=== PATIENT | male | born 1945 | race Caucasian/White ===

== ENCOUNTER 2019-03-21 16:45 | Emergency (ER) | payer MEDICARE ==
[2019-03-21] MEDS ORDERED: Albuterol/Ipratropium 3.0-0.5 MG/3 ML Neb Soln NEB ONE (16:53)
[2019-03-21] MEDS ORDERED: Albuterol/Ipratropium 3.0-0.5 MG/3 ML Neb Soln ONE (16:53)
[2019-03-21] MEDS ORDERED: methylPREDNISolone Sodium Succinate 125 MG/2 ML SDV IVPUSH ONE (16:54)
[2019-03-21] MEDS ORDERED: Sodium Chloride 0.9% 10 ML Syringe FLUSH PRN (16:54)
--- NOTE | 2019-03-21 16:58 | EDM.PDOC ---
ED HPI GENERAL MEDICAL PROBLEM - General Chief Complaint: Respiratory Problem Stated Complaint: SOB Time Seen by Provider: 03/21/19 16:52 Source of Information: Reports: Patient History Limitations: Reports: No Limitations - History of Present Illness INITIAL COMMENTS - FREE TEXT/NARRATIVE: Patient is an unfortunate 73-year-old male who is obese that presents emergency Department today with complaint of shortness of breath. Patient reports that symptoms started yesterday and progressively worsened today so he sought care in the emergency department. Patient reports that shortness of breath so severe that he was unable to smoke today shortness of breath positive cough which is nonproductive no chest pain no nausea no vomiting no fever no chills tells us that he drinks a half gallon of whiskey per day, and smokes a carton of cigarettes every 4 days - Related Data Allergies Allergy/AdvReac Type Severity Reaction Status Date / Time No Known Allergies Allergy Verified 03/21/19 16:49 Home Meds: Home Meds Aspirin [Ecotrin EC] 81 mg PO DAILY 03/21/19 [History] Lisinopril [Zestril] 20 mg PO DAILY 03/21/19 [History] Meloxicam 7.5 mg PO DAILY 03/21/19 [History] atorvaSTATin Calcium [Atorvastatin Calcium] 40 mg PO DAILY 03/21/19 [History] metFORMIN HCl [Metformin HCl] 1,000 mg PO DAILY 03/21/19 [History] ED ROS GENERAL - Review of Systems Review Of Systems: See Below Constitutional: Denies: Fever, Chills Respiratory: Reports: Shortness of Breath. Denies: Cough Cardiovascular: Denies: Chest Pain ED EXAM, GENERAL - Physical Exam Exam: See Below Exam Limited By: No Limitations General Appearance: Alert, WD/WN, Mild Distress, Obese Nose: Normal Inspection, Normal Mucosa, No Blood Throat/Mouth: Normal Inspection Head: Atraumatic, Normocephalic Respiratory/Chest: Respiratory Distress (Mild patient is hypoxic with an SPO2 of 85% on room air), Decreased Breath Sounds (Bibasilar), Wheezing (Moderate end expiratory upper lobes) Cardiovascular: Normal Peripheral Pulses, No Edema, No Gallop, No JVD, No Murmur , No Rub, Tachycardia, Irregularly Irregular GI/Abdominal: Normal Bowel Sounds, Soft, Non-Tender, No Organomegaly, No Distention, No Abnormal Bruit, No Mass Back Exam: Normal Inspection, Full Range of Motion, NT Extremities: Normal Range of Motion, Non-Tender, Normal Capillary Refill, Other (Pretibial edema 3+ bilaterally) Neurological: Alert, Other (hard of hearing) Skin Exam: Warm, Dry, No Rash EKG INTERPRETATION EKG Date: 03/21/19 Time: 17:34 Rhythm: A-Fib Rate (Beats/Min): 121 Mason: Normal QRS: Normal ST-T: Normal QT: Normal Course - Vital Signs Last Recorded V/S: Last Vital Signs Temp 99.6 F 03/21/19 16:54 Pulse 130 H 03/21/19 18:24 Resp 40 H 03/21/19 16:54 BP 144/77 H 03/21/19 18:24 Pulse Ox 95 03/21/19 17:57 - Orders/Labs/Meds Orders: Active Orders 24 hr Category Date Time Status EKG Documentation Completion [RC] ASDIRECTED Care 03/21/19 16:54 Active Oxygen Therapy [RC] ASDIRECTED Care 03/21/19 16:55 Active RT Aerosol Therapy [RC] ASDIRECTED Care 03/21/19 16:53 Active Chest 1V Frontal [CR] Stat Exams 03/21/19 16:54 Taken CULTURE BLOOD [BC] Stat Lab 03/21/19 18:25 Received CULTURE BLOOD [BC] Stat Lab 03/21/19 18:33 Received UA RFX ILDA AND CULT IF INDIC [URIN] Stat Lab 03/21/19 16:54 Ordered Sodium Chloride 0.9% [Saline Flush] Med 03/21/19 16:54 Active 10 ml FLUSH ASDIRECTED PRN Blood Culture x2 Reflex Set [OM.PC] Stat Oth 03/21/19 18:08 Ordered Saline Lock Insert [OM.PC] Stat Oth 03/21/19 16:54 Ordered EKG 12 Lead [EK] Stat Ther 03/21/19 16:54 Ordered Medication Orders Sodium Chloride (Saline Flush) 10 ml FLUSH ASDIRECTED PRN PRN Reason: Keep Vein Open Last Admin: 03/21/19 17:09 Dose: 10 ml Labs: Laboratory Tests 03/21/19 03/21/19 03/21/19 Range/Units 16:53 16:53 16:53 WBC 6.11 (4.23-9.07) K/mm3 RBC 4.88 (4.63-6.08) M/mm3 Hgb 16.4 (13.7-17.5) gm/dl Hct 47.5 (40.1-51.0) % MCV 97.3 H (79.0-92.2) fl MCH 33.6 H (25.7-32.2) pg MCHC 34.5 (32.2-35.5) g/dl RDW Std Deviation 50.3 H (35.1-43.9) fL Plt Count 157 L (163-337) K/mm3 MPV 11.0 (9.4-12.3) fl Neut % (Auto) 68.6 H (34.0-67.9) % Lymph % (Auto) 6.7 L (21.8-53.1) % [place] % (Auto) 24.2 H (5.3-12.2) % Eos % (Auto) 0 L (0.8-7.0) Baso % (Auto) 0.3 (0.1-1.2) % Neut # (Auto) 4.19 (1.78-5.38) K/mm3 Lymph # (Auto) 0.41 L (1.32-3.57) K/mm3 [place] # (Auto) 1.48 H (0.30-0.82) K/mm3 Eos # (Auto) 0.00 L (0.04-0.54) K/mm3 Baso # (Auto) 0.02 (0.01-0.08) K/mm3 Manual Slide Review Normal smear Puncture Site ABG pH (7.35-7.45) ABG pCO2 (35.0-45.0) mmHg ABG pO2 (80.0-100.0) mmHg ABG HCO3 (22.0-26.0) meq/L ABG O2 Saturation (96.0-97.0) % ABG Base Excess (-2-2.0) Ryan Test O2 Delivery Device Oxygen Flow Rate FiO2 (21.00-100.00) % Sodium 132 L (136-145) mEq/L Potassium 4.0 (3.5-5.1) mEq/L Chloride 95 L (98-107) mEq/L Carbon Dioxide 25 (21-32) mEq/L Anion Gap 16.0 H (5-15) BUN 9 (7-18) mg/dL Creatinine 1.0 (0.7-1.3) mg/dL Est Cr Clr Drug Dosing 68.94 mL/min Estimated GFR (MDRD) > 60 (>60) mL/min BUN/Creatinine Ratio 9.0 L (14-18) Glucose 173 H (83-115) mg/dL Lactic Acid (0.4-2.0) mmol/L Calcium 8.6 (8.5-10.1) mg/dL Total Bilirubin 0.4 (0.2-1.0) mg/dL AST 36 (15-37) U/L ALT 60 (16-63) U/L Alkaline Phosphatase 72 (46-116) U/L Troponin I 0.393 H* (0.00-0.056) ng/mL NT-Pro-B Natriuret Pep (0-125) pg/mL Total Protein 8.0 (6.4-8.2) g/dl Albumin 3.7 (3.4-5.0) g/dl Globulin 4.3 gm/dL Albumin/Globulin Ratio 0.9 L (1-2) Ethyl Alcohol 0.00 (0.00) gm% 03/21/19 03/21/19 03/21/19 Range/Units 16:53 16:55 18:33 WBC (4.23-9.07) K/mm3 RBC (4.63-6.08) M/mm3 Hgb (13.7-17.5) gm/dl Hct (40.1-51.0) % MCV (79.0-92.2) fl MCH (25.7-32.2) pg MCHC (32.2-35.5) g/dl RDW Std Deviation (35.1-43.9) fL Plt Count (163-337) K/mm3 MPV (9.4-12.3) fl Neut % (Auto) (34.0-67.9) % Lymph % (Auto) (21.8-53.1) % [place] % (Auto) (5.3-12.2) % Eos % (Auto) (0.8-7.0) Baso % (Auto) (0.1-1.2) % Neut # (Auto) (1.78-5.38) K/mm3 Lymph # (Auto) (1.32-3.57) K/mm3 [place] # (Auto) (0.30-0.82) K/mm3 Eos # (Auto) (0.04-0.54) K/mm3 Baso # (Auto) (0.01-0.08) K/mm3 Manual Slide Review Puncture Site Rt radial ABG pH 7.38 (7.35-7.45) ABG pCO2 44.4 (35.0-45.0) mmHg ABG pO2 52.0 L (80.0-100.0) mmHg ABG HCO3 25.7 (22.0-26.0) meq/L ABG O2 Saturation 85.2 L (96.0-97.0) % ABG Base Excess 0.7 (-2-2.0) Ryan Test Positive O2 Delivery Device Mask Oxygen Flow Rate 10.0 FiO2 0.00 L (21.00-100.00) % Sodium (136-145) mEq/L Potassium (3.5-5.1) mEq/L Chloride (98-107) mEq/L Carbon Dioxide (21-32) mEq/L Anion Gap (5-15) BUN (7-18) mg/dL Creatinine (0.7-1.3) mg/dL Est Cr Clr Drug Dosing mL/min Estimated GFR (MDRD) (>60) mL/min BUN/Creatinine Ratio (14-18) Glucose (83-115) mg/dL Lactic Acid 2.3 H* (0.4-2.0) mmol/L Calcium (8.5-10.1) mg/dL Total Bilirubin (0.2-1.0) mg/dL AST (15-37) U/L ALT (16-63) U/L Alkaline Phosphatase (46-116) U/L Troponin I (0.00-0.056) ng/mL NT-Pro-B Natriuret Pep 1645 H (0-125) pg/mL Total Protein (6.4-8.2) g/dl Albumin (3.4-5.0) g/dl Globulin gm/dL Albumin/Globulin Ratio (1-2) Ethyl Alcohol (0.00) gm% Meds: Medications Generic Name Dose Route Start Last Admin Trade Name Freq PRN Reason Stop Dose Admin Sodium Chloride 10 ml 03/21/19 16:54 03/21/19 17:09 Saline Flush FLUSH 10 ml ASDIRECTED PRN Administration Keep Vein Open Discontinued Medications Generic Name Dose Route Start Last Admin Trade Name Sage PRN Reason Stop Dose Admin Albuterol/Ipratropium 3 ml 03/21/19 16:53 03/21/19 17:42 Duoneb 3.0-0.5 Mg/3 Ml NEB 03/21/19 16:54 3 ml ONETIME ONE Administration Albuterol/Ipratropium Confirm 03/21/19 16:53 03/21/19 16:50 Duoneb 3.0-0.5 Mg/3 Ml Administered 03/21/19 16:54 6 ml Dose Administration 6 ml .ROUTE .STK-MED ONE Aspirin 324 mg 03/21/19 17:39 03/21/19 17:53 Aspirin PO 03/21/19 17:40 324 mg ONETIME ONE Administration Enoxaparin Sodium 100 mg 03/21/19 17:39 03/21/19 17:53 Lovenox SUBCUT 03/21/19 17:40 100 mg ONETIME ONE Administration Metoprolol Tartrate 5 mg/ 55 mls @ 100 mls/hr 03/21/19 18:09 Sodium Chloride IV 03/21/19 18:41 ONETIME ONE Lorazepam 0.5 mg 03/21/19 17:09 03/21/19 17:14 Ativan IVPUSH 03/21/19 17:10 0.5 mg ONETIME ONE Administration Lorazepam 0.5 mg 03/21/19 17:34 03/21/19 17:41 Ativan IVPUSH 03/21/19 17:35 0.5 mg ONETIME ONE Administration Methylprednisolone Sodium Succinate 125 mg 03/21/19 16:54 03/21/19 17:08 Solu-Medrol IVPUSH 03/21/19 16:55 125 mg ONETIME ONE Administration Metoprolol Tartrate 5 mg 03/21/19 18:19 03/21/19 18:24 Lopressor IVPUSH 03/21/19 18:20 5 mg ONETIME ONE Administration - Re-Assessments/Exams Free Text/Narrative Re-Assessment/Exam: 03/21/19 17:09 ABG shows pH 7.38 PCO2 of 44 PO2 of 52 bicarbonate 25 Free Text/Narrative Re-Assessment/Exam: 03/21/19 18:26 Aspirin by mouth, Lovenox given 1 mg/kg Lopressor 5 mg heart rate down to 104 03/21/19 18:41 Free Text/Narrative Re-Assessment/Exam: 03/21/19 19:[address] [place] and at [facility] in [place] who except patient in transfer Departure - Departure Time of Disposition: 19:31 Disposition: DC/Tfer to [facility] Clinical Impression: COPD exacerbation, Non-STEMI (non-ST elevated myocardial infarction), Atrial fibrillation with RVR - Discharge Information Referrals: PCP,None [Primary Care Provider] - Forms: ED Department Discharge Sepsis Event Note - Focused Exam Vital Signs: Vital Signs Temp Pulse Pulse Resp BP BP Pulse Ox 03/21/19 18:24 130 H 144/77 H 03/21/19 17:57 03/21/19 17:47 03/21/19 16:54 99.6 F 105 H 40 H 169/92 H 85 L 03/21/19 16:53 Pulse Ox 03/21/19 18:24 03/21/19 17:57 95 03/21/19 17:47 96 03/21/19 16:54 03/21/19 16:53 94 L Date Exam was Performed: 03/21/19 Time Exam was Performed: 19:30 - My Orders Last 24 Hours: My Active Orders 03/21/19 16:53 RT Aerosol Therapy [RC] ASDIRECTED 03/21/19 16:54 EKG Documentation Completion [RC] ASDIRECTED Chest 1V Frontal [CR] Stat UA RFX ILDA AND CULT IF INDIC [URIN] Stat Sodium Chloride 0.9% [Saline Flush] 10 ml FLUSH ASDIRECTED PRN Saline Lock Insert [OM.PC] Stat EKG 12 Lead [EK] Stat 03/21/19 16:55 Oxygen Therapy [RC] ASDIRECTED 03/21/19 18:08 Blood Culture x2 Reflex Set [OM.PC] Stat 03/21/19 18:25 CULTURE BLOOD [BC] Stat 03/21/19 18:33 CULTURE BLOOD [BC] Stat - Assessment/Plan Last 24 Hours: My Active Orders 03/21/19 16:53 RT Aerosol Therapy [RC] ASDIRECTED 03/21/19 16:54 EKG Documentation Completion [RC] ASDIRECTED Chest 1V Frontal [CR] Stat UA RFX ILDA AND CULT IF INDIC [URIN] Stat Sodium Chloride 0.9% [Saline Flush] 10 ml FLUSH ASDIRECTED PRN Saline Lock Insert [OM.PC] Stat EKG 12 Lead [EK] Stat 03/21/19 16:55 Oxygen Therapy [RC] ASDIRECTED 03/21/19 18:08 Blood Culture x2 Reflex Set [OM.PC] Stat 03/21/19 18:25 CULTURE BLOOD [BC] Stat 03/21/19 18:33 CULTURE BLOOD [BC] Stat
[2019-03-21] MEDS ORDERED: LORazepam 2 MG/ML SDV IVPUSH ONE ×2 (17:09→17:34)
[2019-03-21] MEDS ORDERED: Aspirin 81 MG Tab.Chew PO ONE (17:39)
[2019-03-21] MEDS ORDERED: Enoxaparin 100 MG/1 ML Syringe SUBCUT ONE (17:39)
[2019-03-21] MEDS ORDERED: Metoprolol Tartrate 5 MG in Sodium Chloride 0.9% 50 ML IV ONE (18:09)
[2019-03-21] MEDS ORDERED: Metoprolol Tartrate 5 MG/5 ML SDV IVPUSH ONE (18:19)
--- NOTE | 2019-03-23 09:17 | CR ---
Chest: Portable view of the chest was obtained. Comparison: No prior chest x-ray. Heart size and mediastinum are normal. Lung markings are slightly increased which are most likely chronic. No acute parenchymal change is suspected. Bony structures are grossly intact. Impression: 1. Nothing acute is appreciated on portable chest x-ray. Diagnostic code #2 This report was dictated in [place] Standard Time
== END 2019-03-21 20:00 | disposition hospice, inpatient (51) ==
LOC: JD.ED 16:45
DX: I21.4 Non-ST elevation (NSTEMI) myocardial infarction (principal); J44.1 Chronic obstructive pulmonary disease with (acute) exacerbation; Z79.82 Long term (current) use of aspirin; Z79.899 Other long term (current) drug therapy
CPT/HCPCS: 36415; 36600; 71045; 80053; 82803; 83605; 83880; 84484; 85025; 87040; 87804; 93005; 94640; 96372; 96374; 96375; 99285; A9270; G0480; J1650; J2060; J2930; J3490; J7620-GY